=== PATIENT | female | born 1970 | race Caucasian/White ===

== ENCOUNTER 2021-01-23 16:19 | Emergency (ER) | payer BC ==
[~2021-01-23] VITALS: Ht 154.9 cm; Wt 91.7 kg
[2021-01-23] MEDS ORDERED: AZEL1SPR3 (16:36)
[2021-01-23] MEDS ORDERED: ALBU8.5H (16:36)
[2021-01-23] MEDS ORDERED: PHEN1TAB73 (16:36)
[2021-01-23] MEDS ORDERED: LOSA100T5 (16:36)
[2021-01-23] MEDS ORDERED: FLUTISP (16:36)
[2021-01-23] MEDS ORDERED: NITR100C2 (16:36)
[2021-01-23] MEDS ORDERED: DICL1GEL3 (16:36)
[2021-01-23 18:57] LABS: BASO % 0.3 % (0.0-1.0); EOS # 0.3 10^3/uL (0.0-0.5); HEMATOCRIT 44.5 % (36.0-47.0); HEMOGLOBIN 15.2 g/dl (12.0-15.5); LYMPH # 1.3 10^3/uL (1.5-5.0); LYMPH % 10.5 % (24.0-44.0); MEAN CORPUSCULAR HEMOGLOBIN 32.5 pg (27.0-33.0); MEAN CORPUSCULAR HGB CONC 34.2 g/dl (32.0-36.5); MEAN CORPUSCULAR VOLUME 95.3 fl (80.0-96.0); MONO # 0.8 10^3/uL (0.0-0.8); NEUTROPHILS # 10.2 10^3/uL (1.5-8.5); NEUTROPHILS % 80.8 % (36.0-66.0); PLATELET COUNT, AUTOMATED 213 10^3/uL (150-450); RED BLOOD COUNT 4.67 10^6/uL (4.00-5.40); WHITE BLOOD COUNT 12.6 10^3/uL (4.0-10.0)
[2021-01-23 19:50] LABS: BILIRUBIN,DIRECT 0.2 MG/DL (0.0-0.2); BILIRUBIN,TOTAL 0.7 MG/DL (0.2-1.0); CALCIUM LEVEL 9.2 MG/DL (8.5-10.1); CREATININE FOR GFR 1.08 MG/DL (0.55-1.30); GLOMERULAR FILTRATION RATE 56.9 (>51); POTASSIUM SERUM 3.5 MEQ/L (3.5-5.1)
[2021-01-23] MEDS ORDERED: PANTOPRAZOLE 40MG VIAL (C9113 PER 1) IV ONE (20:55)
[2021-01-23] MEDS ORDERED: ONDANSETRON 4MG/2ML VIAL IV ONE (20:55)
[2021-01-23] MEDS ORDERED: KETOROLAC 30 MG/ML 1ML VIAL IV ONE (20:55)
[2021-01-23] MEDS ORDERED: NS 1,000 ML IV ONE (21:00)
[2021-01-23] MEDS ORDERED: ISOVUE-370 76% 100ML VIAL As Ordered ONE (22:08)
--- NOTE | 2021-01-23 23:09 | REPVR ---
PROCEDURE INFORMATION: Exam: US Abdomen, Limited; Right Upper Quadrant Exam date and time: 01/23/2021 9:44 PM Age: 50 years old Clinical indication: Abdominal pain; Acute; Additional info: Ruq pain TECHNIQUE: Imaging protocol: US abdomen. Real time ultrasound with image documentation. Limited exam focused on the right upper quadrant. COMPARISON: No relevant prior studies available. FINDINGS: Liver: Mildly echogenic, consistent with fatty infiltration. 1.1 x 0.6 x 1.2 cm cyst in the left hepatic lobe. 0.7 x 0.3 x 0.4 cm cyst in the left hepatic lobe. Gallbladder: No gallstones. No gallbladder wall thickening or pericholecystic fluid. 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 Common bile duct: No stones. No ductal dilatation. Pancreas: Suboptimally visualized. Right kidney: No mass. No definite stones. Mild hydronephrosis. IMPRESSION: 1. Mild right-sided hydronephrosis. 2. Additional findings, as above. Electronically signed by: Cosmo Duenas On 01/23/2021 23:08:59 PM
--- NOTE | 2021-01-23 23:16 | REPVR ---
PROCEDURE INFORMATION: Exam: CT Abdomen And Pelvis With Contrast Exam date and time: 01/23/2021 10:19 PM Age: 50 years old Clinical indication: Abdominal pain; Localized; Right upper quadrant (ruq); Additional info: Ruq pain TECHNIQUE: Imaging protocol: Computed tomography of the abdomen and pelvis with contrast. Axial, coronal and sagittal reformatted images were created and reviewed. Radiation optimization: All CT scans at this facility use at least one of these dose optimization techniques: automated exposure control; mA and/or kV adjustment per patient size (includes targeted exams where dose is matched to clinical indication); or iterative reconstruction. Contrast material: ISOVUE 370; Contrast volume: 100 ml; Contrast route: INTRAVENOUS (IV); COMPARISON: GALLBLADDER US 01/23/2021 9:26 PM FINDINGS: Liver: Diffuse hepatic steatosis. Scattered cysts, measuring up to 1.5 cm in the left hepatic lobe. Gallbladder and bile ducts: No radiodense gallstones. No biliary ductal dilatation. Pancreas: Unremarkable. Spleen: Unremarkable. Adrenal glands: Indeterminate 2.3 x 2 cm left adrenal nodule. Kidneys and ureters: Mild right-sided hydroureteronephrosis and perinephric/periureteral stranding, secondary to a 2 mm right UVJ calculus (axial image 132 and coronal image 70). 5 x 4.8 cm soft tissue nodule in the left external iliac region. Stomach and bowel: No bowel wall thickening. No obstruction. No pneumatosis. Appendix: Normal. Intraperitoneal space: No free fluid. No organized fluid collection. No free air. Vasculature: Mild atherosclerotic disease. No aneurysm or dissection. Lymph nodes: No pathologically enlarged lymph nodes. Urinary bladder: Mild circumferential urinary bladder wall thickening. Reproductive: Status post hysterectomy. Bones/joints: No acute osseous abnormality. Mild degenerative changes. Soft tissues: Small, fat containing umbilical hernia. IMPRESSION: 1. Mild right-sided hydroureteronephrosis and perinephric/periureteral stranding, secondary to a 2 mm right UVJ calculus. 2. 5 x 4.8 cm soft tissue nodule in the left external iliac region, possibly a conglomeration of lymph nodes. Malignancy cannot be excluded. 3. Additional findings, as above. Electronically signed by: Cosmo Duenas On 01/23/2021 23:15:59 PM
[2021-01-24] MEDS ORDERED: CEFD1CAP8 PO (00:15)
[2021-01-24] MEDS ORDERED: CEFDINIR 300 MG CAP (OMNICEF) PO ONE (00:15)
[2021-01-24] MEDS ORDERED: FLOM0.4C39 PO (00:16)
[2021-01-24] MEDS ORDERED: KETO10TAB PO (00:22)
[2021-01-24] MEDS ORDERED: PERC5TAB12 PO (00:25)
[2021-01-24 00:52] VITALS: BP 128/65
--- NOTE | 2021-01-25 09:33 | ED PDOC ---
Post-Departure Follow-Up radiology repo rtfaxed to Dr. Goins, and E clinc Ava Mobley MD Jan 25, 2021 09:33
== END 2021-01-24 01:07 | disposition home or self-care (01) ==
LOC: M ED 16:19
DX: N10 Acute pyelonephritis (principal); N20.1 Calculus of ureter; R59.9 Enlarged lymph nodes, unspecified; E86.0 Dehydration; K76.0 Fatty (change of) liver, not elsewhere classified; I10 Essential (primary) hypertension; E78.5 Hyperlipidemia, unspecified; K21.9 Gastro-esophageal reflux disease without esophagitis; K64.9 Unspecified hemorrhoids; Z79.899 Other long term (current) drug therapy; F17.210 Nicotine dependence, cigarettes, uncomplicated
CPT/HCPCS: 74177; 76705; 80048; 80076; 81001; 83690; 85025; 87086; 96361; 96374; 96375; 99284; C9113; J1885; J2405; Q9967

== ENCOUNTER → 2021-01-25 | Outpatient (REF) | payer BC ==
[~2021-01-25] MED LIST: ALBU8.5H; AZEL1SPR3; CEFD1CAP8 PO; DICL1GEL3; FLOM0.4C39 PO; FLUTISP; KETO10TAB PO; LOSA100T5; NITR100C2; PERC5TAB12 PO; PHEN1TAB73
== END ==
LOC: M LAB REF 13:01
PROVIDERS: ATTEND Emergency Medicine
DX: R19.7 Diarrhea, unspecified (principal)